=== PATIENT | male | born 1950 | race Two or more races ===

== ENCOUNTER 2025-03-22 07:38 | Inpatient (IN) | payer MEDICARE ==
[~2025-03-22] VITALS: Ht 162.6 cm; Wt 61.8 kg
[2025-03-22] VITALS (13 sets, daily range): BP systolic 92–166; BP diastolic 58–80; PULSE 50–73; RESP 12–18; TEMP 97.5–97.7; O2SAT 95–99
[~2025-03-22 07:38] MED LIST: TAMS0.4C39 PO
[2025-03-22] MEDS: IODIXANOL 320MG/ML 100ML BTL IV ONE (08:22)
[2025-03-22] MEDS: HEPARIN SODIUM (PORCINE) 5000 UNITS/ML 1ML VIAL ONE (08:53)
[2025-03-22] MEDS: VERAPAMIL 2.5MG/ML INJ 2ML VIAL IV ONE (08:53)
[2025-03-22] MEDS: ANGIOMAX 250 MG VIAL IV ONE (08:53)
[2025-03-22] MEDS: MIDAZOLAM HCL 2MG/2ML 2ml VIAL (1mg/ml) ONE (08:54)
[2025-03-22] MEDS: fentaNYL CITRATE 100 MCG/2 ML VL ONE (08:54)
[2025-03-22] MEDS: SODIUM CHL 0.9% 50 ML ONE (08:54)
[2025-03-22] MEDS: LIDOCAINE 2%HCL (LOCAL ANESTH.) INJ 20ML MDV ONE (08:54)
[2025-03-22] MEDS: ATROPINE SULF 1 MG/10ml SYR ONE (09:28)
[2025-03-22] MEDS: TICAGRELOR 90 MG TAB ONE (09:34)
[2025-03-22] MEDS ORDERED: NITROGLYCERIN 0.4 MG SL TAB SL PRN (10:15)
[2025-03-22] MEDS ORDERED: MORPHINE SULFATE INJ 2 MG/ml SYRG IV PRN (10:15)
--- NOTE | 2025-03-22 11:16 | DVHOP2 ---
Operative Report Operative Report CARDIAC SALES SECRETARY PROCEDURE REPORT [place], [place] Date of Service: 03/22/25 Foot Piece Assembler: Grazyna Guajardo MD PROCEDURES PERFORMED: Coronary angiogram, left heart catheterization, conscious sedation administration and supervision, less than 15 minutes; fluoroscopy use and interpretation. sedation 15-30 mins, PTCA 1 vessel, PCI 1 vessel, PTCA additional vessel, PCI 2 additional vessel, IVL intravascular lithotripsy 1 ves enrique intracoronary injection of medication, nitroglycerin PREOPERATIVE DIAGNOSES: Abnormal stress test with CCS class 3 angina, POSTOP DIAGNOSIS: DESCRIPTION OF PROCEDURE: The patient or appropriate family signed informed consent understanding the risks, benefits and alternatives of the procedure, they wished to proceed. The patient was brought to the cardiac laborer bituminous paving in [place]p.o[place] state. The patient was prepped in a sterile fashion. Sedation was used per cardiac cath protocol. I administered 2 mL of 2% lidocaine to the right wrist. With an antegrade front wall puncture. I cannulated the right radial artery and placed a 6-[place]gu[place]an Glidesheath slender. Next, an intra-arterial spasmolytic was administered. Next, a - 6French Douglas catheter and XB 3.5 guide and were used for coronary angiogram and LVEDP measurement and pressure pullback. At the completion of procedure, all guides and wires were removed, and there were no immediate complications. FINDINGS: RCA: Moderate vessel off the right sinus of Valsalva, there is no severe flow limiting stenosis. mild diffuse plaquing LEFT MAIN: Moderate size left main, it bifurcates into LAD and circumflex. no stenosis. CIRCUMFLEX: Moderate caliber vessel coming off the left main .distal CX has a 95% stenosis. prox CX with 40% stenosis LAD: LAD is a moderate caliber vessel coming of the left main. mid LAD has 80% stenosis INTERVENTION: We decided to proceed with coronary intervention. I started with a 6F __XB 3.5 __ Guide to intubate the _LM _. Angiomax bolus and gtt was started. Following this, I decided to wire using an .014 BMW across the culprit lesion with ease which was the LAD first . At this time, we performed balloon angioplasty with a _2.5 x 12 mm balloon by [employer] IV balloon up to __3___ ATMS over __15__ seconds with __10 pulses each for total of 30 pulses__ number of inflations. Following this, I decided to place a stent using a 3.0 x 18 mm onyx____ stent inflated up to __18___ ATMS over 15 seconds with two separate inflations. Following this, the stent balloon removed and angio performed showing 0% residual stenosis. THen i removed my wire and rewired to distal CX. i ballooned usng 2.25 x 12 mm euphora balloon up to 12 atms with 2 inflations. then i stented using a 2.25 x 18 mm stent and inflated up to 16 atms . i gave 200 mcg of IC nitroglycerin given thrombus burden. then angio showed 0% stenosis. ALEJANDRO pre/post: 3./3 CONCLUSIONS: 1. sp pci and IVL to 80% mid LAD stenosis 2. s/p PCI to 95% distal CX stenosis PLAN: Aggressive risk factor modification and medical management for the patient. DAPT x 1 year uninterrupted GRAZYNA GUAJARDO MD Mar 22, 2025 11:16
[2025-03-22] MEDS: CLOPIDOGREL BISULFATE 75 MG TAB PO ONE (18:24)
[2025-03-22] MEDS: ATORVASTATIN 20 MG TAB PO SCH (22:03)
[2025-03-22] MEDS: ACETAMINOPHEN 325 MG TAB PO PRN (22:04)
[2025-03-23] VITALS (8 sets, daily range): BP systolic 109–138; BP diastolic 48–99; PULSE 63–85; RESP 15–18; TEMP 97.4–97.8; O2SAT 96–99
[2025-03-23] MEDS ORDERED: TAMSULOSIN HYDROCHLORIDE 0.4 MG CAP PO SCH (07:00)
[2025-03-23] MEDS: CLOPIDOGREL BISULFATE 75 MG TAB PO SCH (08:16)
[2025-03-23] MEDS: TAMSULOSIN HYDROCHLORIDE 0.4 MG CAP PO SCH (08:17)
--- NOTE | 2025-03-23 10:58 | DVHHP2 ---
Review of Systems Allergies: Coded Allergies: Penicillins (Verified Allergy, Mild, SYNCOPE, 03/19/25) Medications Current Medications Medications Dose Ordered Sig/Rocky Route Start Time Stop Time Status Last Admin Dose Admin Nitroglycerin 0.4 mg Q5MINP PRN SL 03/22/25 10:15 Morphine Sulfate 2 mg Q30M PRN IV 03/22/25 10:15 Clopidogrel Bisulfate 75 mg DAILY PO 03/23/25 10:00 03/23/25 08:16 75 MG Aspirin 81 mg DAILY PO 03/23/25 10:00 03/23/25 08:17 81 MG Atorvastatin Calcium 40 mg HS PO 03/22/25 22:00 03/22/25 22:03 40 MG Acetaminophen 650 mg Q4HP PRN PO 03/22/25 21:00 03/22/25 22:04 650 MG Tamsulosin HCl 0.4 mg QAM PO 03/23/25 08:00 03/23/25 08:17 0.4 MG Exam Vital Signs Vital Signs Date Time Temp Pulse Resp B/P (MAP) Pulse Ox O2 Delivery O2 Flow Rate FiO2 03/23/25 09:25 97.4 68 18 121/75 (90) 96 97.4 03/23/25 08:00 Room Air* 0 21 Assessment/Plan Assessment/Plan see dictated note Plan discussed with: PatientKhadar Date of Service: Mar 23, 2025 Billing Provider: TORRES HALL MD Common Visit Codes: [id number] INP/OBS CARE (HIGH) Secondary Visit Codes: [id number] CARE PLAN 30 MINUTES TORRES HALL MD Mar 23, 2025 10:58
--- NOTE | 2025-03-23 11:07 | DVHHP ---
ADMIT DATE: 03/23/2025 HISTORY OF PRESENT ILLNESS: The patient is a 75-year-old gentleman who was admitted after he has recurrent episodes of chest pain going on for several months. The patient denies any dizziness. No syncope. No nausea or vomiting. No history of shortness of breath or pedal edema. REVIEW OF SYSTEMS: Otherwise currently negative. PAST MEDICAL HISTORY: Significant for BPH. MEDICATIONS: He takes Flomax. ALLERGIES: PENICILLIN. SOCIAL HISTORY: Denies smoking or alcohol. He lives at home with his son. FAMILY HISTORY: Negative. PHYSICAL EXAMINATION: GENERAL: The patient is awake and alert. VITAL SIGNS: Temperature of 97.4, pulse 68 per minute, blood pressure 121/75. SHEENT: Unremarkable. NECK: There is no JVD. No pedal edema. LUNGS: Equal bilaterally. No added sounds. CARDIOVASCULAR: S1 and S2 is regular. No murmurs. ABDOMEN: Soft. There is no organomegaly. NEUROLOGIC: Nonfocal. MUSCULOSKELETAL: Normal. ASSESSMENT AND PLAN: * Benign prostatic hyperplasia for which he will continue on Flomax. * Coronary artery disease with unstable angina. The patient is status post coronary angiography with PCI to LAD and circumflex. ADVANCED CARE PLANNING: The patient is full code- Time spent was 18 minutes MD MICHELLE Brooks/CHARLIE TID: [id number] RECEIPT: [id number] MTDD
[2025-03-23 11:18] LABS: Hematocrit 43.5 % (41.0-53.0); Hemoglobin 15.1 g/dL (13.5-17.5); Mean Corpuscular Hemoglobin 29.8 pg (28.0-32.0); Mean Corpuscular Volume 86.0 fL (80.0-100.0); Nucleated Red Blood Cells % 0.0 %
[2025-03-23 11:36] LABS: Alanine Aminotransferase 17 U/L (7-40); Albumin 4.5 g/dL (3.2-4.8); Alkaline Phosphatase 88 U/L (46-116); Anion Gap 9 (5-15); BUN/Creatinine Ratio 13.5 (10.0-20.0); Bilirubin, Total 1.1 mg/dL (0.2-1.0); Blood Urea Nitrogen 17 mg/dL (9-23); Calcium 10.2 mg/dL (8.7-10.4); Carbon Dioxide 23 mmol/L (20-31); Chloride 107 mmol/L (98-107); Cholesterol 148 mg/dL (< 200); Potassium 4.0 mmol/L (3.5-5.1); Sodium 139 mmol/L (136-145); Total Protein 6.9 g/dL (5.7-8.2); Triglycerides 112 mg/dL (< 150)
[2025-03-23 11:39] LABS: Glucose 131 mg/dL (74-106); HDL Cholesterol 40 mg/dL (40-59)
--- NOTE | 2025-03-23 13:10 | DVH ---
EXAM: XY CHEST PORTABLE Indication: pain Technique: Single frontal view of the chest was obtained Comparison: None FINDINGS: Lines and Tubes: None Lungs: No focal consolidation. Pleura: No effusion. No pneumothorax. Cardiomediastinal contours: Unremarkable Bones: No acute osseous abnormality. IMPRESSION: No acute cardiopulmonary disease.
[2025-03-24 05:00] VITALS: BP 121/74; PULSE 82; RESP 18; TEMP 97.6; O2SAT 96
[2025-03-24 08:00] VITALS: PULSE 88; PULSE 92; RESP 18
[2025-03-24] MEDS: LISINOPRIL 5 MG TAB PO SCH (08:36)
[2025-03-24 09:00] VITALS: BP 121/78; PULSE 74; RESP 17; TEMP 97.5; O2SAT 97
[2025-03-24 10:36] LABS: Urine Protein, UAD Negative (Negative)
--- NOTE | 2025-03-24 11:11 | DVHDS2 ---
Discharge Summary Date of Admission Mar 22, 2025 at 10:06 Date of Discharge: Mar 24, 2025 Labs/Diagnostic Data: Laboratory Results Test 03/24/25 10:29 03/23/25 11:04 Urine Color Colorless (Yellow) Urine Clarity Clear (Clear) Urine pH 5.0 (5.0-9.0) Urine Specific [place] 1.007 (1.001-1.035) Urine Protein Negative (Negative) Urine Ketones Negative (Negative) Urine Blood Negative /uL (Negative) Urine Nitrite Negative (Negative) Urine Bilirubin Negative (Negative) Urine Urobilinogen Normal mg/dL (Negative) Urine Leukocyte Esterase Negative /uL (Negative) Urine RBC <1 /hpf (0 - 3) Urine Microscopic WBC < 1 /HPF (0-3) Urine Squamous Epithelial Cells None seen /hpf (<5) Urine Bacteria None seen /hpf (None Seen) Urine Glucose Trace mg/dL (Normal) White Blood Count 6.1 10^3/uL (4.4-10.8) Red Blood Count 5.06 10^6/uL (4.5-5.90) Hemoglobin 15.1 g/dL (13.5-17.5) Hematocrit 43.5 % (41.0-53.0) Mean Corpuscular Volume 86.0 fL (80.0-100.0) Mean Corpuscular Hemoglobin 29.8 pg (28.0-32.0) Mean Corpuscular Hemoglobin Concent 34.6 g/dL (32.0-36.0) Red Cell Distribution Width 14.6 % (11.8-14.3) Platelet Count 159 10^3/uL (140-450) Mean Platelet Volume 9.1 fL (6.9-10.8) Neutrophils (%) (Auto) 69.7 % (37.0-80.0) Lymphocytes (%) (Auto) 23.2 % (10.0-50.0) Monocytes (%) (Auto) 5.8 % (0.0-12.0) Eosinophils (%) (Auto) 1.0 % (0.0-7.0) Basophils (%) (Auto) 0.3 % (0.0-2.0) Neutrophils # (Auto) 4.2 10 ^3/uL (1.6-8.6) Lymphocytes # (Auto) 1.4 10 ^3/uL (0.4-5.4) Monocytes # (Auto) 0.4 10 ^3/uL (0-1.3) Eosinophils # (Auto) 0.1 10 ^3/uL (0-0.8) Basophils # (Auto) 0 10 ^3/uL (0-0.2) Nucleated Red Blood Cells 0.0 % Sodium Level 139 mmol/L (136-145) Potassium Level 4.0 mmol/L (3.5-5.1) Chloride Level 107 mmol/L (98-107) Carbon Dioxide Level 23 mmol/L (20-31) Anion Gap 9 (5-15) Blood Urea Nitrogen 17 mg/dL (9-23) Creatinine 1.26 mg/dL (0.700-1.30) Glomerular Filtration Rate Calc 59 mL/min (>90) BUN/Creatinine Ratio 13.5 (10.0-20.0) Serum Glucose 131 mg/dL (74-106) Calcium Level 10.2 mg/dL (8.7-10.4) Total Bilirubin 1.1 mg/dL (0.2-1.0) Aspartate Amino Transferase (AST) 23 U/L (13-40) Alanine Aminotransferase (ALT) 17 U/L (7-40) Alkaline Phosphatase 88 U/L (46-116) Total Protein 6.9 g/dL (5.7-8.2) Albumin 4.5 g/dL (3.2-4.8) Triglycerides Level 112 mg/dL (< 150) Cholesterol Level 148 mg/dL (< 200) LDL Cholesterol 99 mg/dL (< 100) HDL Cholesterol 40 mg/dL (40-59) Other Laboratory Tests 03/23/25 11:04 Brief Hx & Hospital Course: see dictated note Condition at Discharge: Fair Final Diagnosis/Problems List cad Discharge Disposition: Home Discharge Instruct/Medications Diet: Cardiac 2g Na,low cholest Activity: No Restrictions, As Tolerated Follow Up/Referral: fu with dr Rausch Medications: script to pharmacy resume home meds Scheduled Tamsulosin Hcl (Tamsulosin Hcl), 1 TAB PO QAM, (Reported) Discharge Statement: "Patient was advised to return to the ER or call 911 if any headaches, dizziness, shortness of breath, chest pain, abdominal pain, bleeding, fevers, or worsening of medical condition. Patient was counseled about treatment plan, medications, possible side effects, patientverbalized understanding. All questions were answered to the best of my ability. This discharge took greater then 30 minutes in planning, reviewing documentation, counseling the patient, and discussing with other team members." ASSESSMENT ASSESSMENT Assessment cad Date of Service: Mar 24, 2025 Billing Provider: TORRES HALL MD Common Visit Codes: 41236-SWH/OBS DISCH DAY >30min TORRES HALL MD Mar 24, 2025 11:11
[2025-03-24] MEDS ORDERED: LISI10TA34 PO (11:14)
[2025-03-24] MEDS ORDERED: ASPI1TAB20 PO (11:14)
[2025-03-24] MEDS ORDERED: ATOR-507 PO (11:14)
[2025-03-24] MEDS ORDERED: CLOP75TA28 PO (11:14)
[2025-03-24 12:26] VITALS: BP 129/73; PULSE 84; RESP 16; TEMP 97.4; O2SAT 97
[2025-03-24 16:54] VITALS: BP 89/56; PULSE 78; RESP 18; TEMP 97.9; O2SAT 96
--- NOTE | 2025-03-25 03:21 | DVHDS ---
DATE OF DISCHARGE: 03/24/2025 The patient is a 75-year-old gentleman who was admitted with history of recurrent episodes of chest pain and has history of BPH. HOSPITAL COURSE: The patient underwent coronary angiography by Dr. Rausch. The patient had angioplasty and stent to the LAD and circumflex. The patient currently is doing well and will be discharged home to be on aspirin 81 mg daily, Plavix 75 mg daily, Lipitor 40 mg at bedtime, lisinopril 10 mg daily. He will resume the rest of his home medications. Chest x-ray was unremarkable. No beta-maura was given because the patient was bradycardic. FINAL DIAGNOSES: * BPH. * Coronary artery disease, status post stents. Time spent in discharge planning and review of plan with the patient and family at bedtime was 38 minutes. MD MICHELLE Brooks/OZIEL/ERNESTINA TID: [id number] RECEIPT: [id number]
== END 2025-03-24 17:57 | disposition home or self-care (01) | DRG 324 ==
LOC: CATH 07:38 → OVERFLOW 10:06 → TELE-EAST 13:06
PROVIDERS: ADMIT Internal Medicine; ATTEND Internal Medicine
PROC: 4A023N7 Measurement of Cardiac Sampling and Pressure, Left Heart, Percutaneous Approach (ICD-10-PCS; principal; 2025-03-22)
PROC: B211YZZ Fluoroscopy of Multiple Coronary Arteries using Other Contrast (ICD-10-PCS; 2025-03-22)
PROC: 027135Z Dilation of Coronary Artery, Two Arteries with Two Drug-eluting Intraluminal Devices, Percutaneous Approach (ICD-10-PCS; 2025-03-22)
PROC: 02F03ZZ Fragmentation in Coronary Artery, One Artery, Percutaneous Approach (ICD-10-PCS; 2025-03-22)
DX: I25.110 Atherosclerotic heart disease of native coronary artery with unstable angina pectoris (principal); N40.0 Benign prostatic hyperplasia without lower urinary tract symptoms; Z88.0 Allergy status to penicillin
CPT/HCPCS: 36415; 71045; 80053; 80061; 81001; 85025; 92943; 92972; 93458; 99152; G0378; J2250; Q9967